=== PATIENT | female | born 1950 | race American Indian/Alaskan Native ===

== ENCOUNTER 2017-03-10 18:36 | Emergency (ER) | payer MEDICARE ==
[2017-03-10 21:30] LABS: BASO % 0.6 % (0.0-2.0); EOS # 0.1 K/uL (0.0-0.7); EOS % 1.7 % (0.0-4.0); HEMOGLOBIN 14.1 g/dL (11.0-16.0); LYMPH # 2.7 K/uL (1.0-4.3); LYMPH % 34.2 % (20.0-40.0); MEAN CELL VOLUME 87.7 fL (81.0-99.0); MEAN CORPUSCULAR HEMOGLOBIN 29.9 pg (27.0-31.0); MEAN CORPUSCULAR HGB CONC 34.1 g/dL (33.0-37.0); MEAN PLATELET VOLUME 7.4 fL (7.2-11.7); MONO # 0.5 K/uL (0.0-0.8); MONO % 6.3 % (0.0-10.0); NEUT # 4.4 K/uL (1.8-7.0); NEUT % 57.2 % (50.0-75.0); NRBC % 0.2 % (0.0-2.0); RBC 4.7 Mil/uL (3.80-5.20); RED CELL DISTRIBUTION WIDTH 15.2 % (11.5-14.5); WHITE BLOOD COUNT 7.7 K/uL (4.8-10.8)
[2017-03-10 21:39] LABS: SQUAMOUS EPITHIAL 4 /hpf (0-5); URINE BACTERIA MOD (<OCC); URINE BILIRUBIN NEGATIVE (NEGATIVE); URINE BLOOD 1+ (NEGATIVE); URINE CLARITY Hazy (Clear); URINE COLOR Yellow (YELLOW); URINE GLUCOSE (UA) NORMAL (Normal); URINE LEUKOCYTE ESTERASE 3+ Leu/uL (Negative); URINE NITRATE POSITIVE (NEGATIVE); URINE PROTEIN NEGATIVE (NEGATIVE); URINE UROBILINOGEN NORMAL mg/dL (0.2-1.0); WBC CLUMPS FEW /hpf
[2017-03-10 21:44] LABS: ALBUMIN 4.3 g/dL (3.5-5.0); CALCIUM 9.2 mg/dl (8.6-10.4)
[2017-03-10 21:49] LABS: ALB/GLOB RATIO 1.1 (1.0-2.1)
[2017-03-10] MEDS ORDERED: Aluminum Hydroxide/Magnesium Hydroxide Susp (30 mL) PO STA (21:56)
[2017-03-10] MEDS ORDERED: Belladonna-Phenobarbital PO STA (21:56)
--- NOTE | 2017-03-10 22:03 | C.PDOC ---
History Of Present Illness 66 year old female presents to ED with complaints of vague abdominal pain x2 days and has no past medical history. (+) nausea and 1 episode of loose stool. ( -) vomiting. Describes the pain as "gaseous". Patient denies taking any medication and denies drug allergies. Notes past cholecystectomy in 2010. PCP: Non [facility] provider Time Seen by Provider: 03/10/17 20:58 Chief Complaint (Nursing): Abdominal Pain History Per: Patient History/Exam Limitations: no limitations Onset/Duration Of Symptoms: Days (x2) Current Symptoms Are (Timing): Still Present Quality Of Discomfort: Gas Associated Symptoms: Nausea, Diarrhea. denies: Vomiting Past Medical History Reviewed: Historical Data, Nursing Documentation, Vital Signs Vital Signs: Last Vital Signs Temp 97.7 F 03/11/17 01:43 Pulse 67 03/11/17 01:43 Resp 18 03/11/17 01:43 BP 103/66 03/11/17 01:43 Pulse Ox 96 03/11/17 01:43 - Medical History PMH: No Chronic Diseases Surgical History: Cholecystectomy, Tonsillectomy - [facility] IRRIGATION OF EAR (09/13/14) Family History: States: Unknown Family Hx - Social History Hx Tobacco Use: Yes (half pack per day for last 40 years) Hx Alcohol Use: No Hx Substance Use: No - Immunization History Hx Tetanus Toxoid Vaccination: No Hx Influenza Vaccination: No Hx Pneumococcal Vaccination: No Review Of Systems Except As Marked, All Systems Reviewed And Found Negative. Gastrointestinal: Positive for: Nausea, Abdominal Pain (vague, gaseous), Diarrhea. Negative for: Vomiting Physical Exam - Physical Exam Appears: Well Skin: Normal Color Eye(s): bilateral: Normal Inspection, PERRL, EOMI Throat: Normal Neck: Normal Cardiovascular: Rhythm Regular Respiratory: Normal Breath Sounds, No Wheezing Gastrointestinal/Abdominal: Normal Exam (Benign), Soft, No Tenderness, No Guarding, No Rebound Neurological/Psych: Oriented x3, Normal Motor, Normal Sensation ED Course And Treatment - Laboratory Results Result Diagrams: 03/10/17 21:27 03/10/17 21:27 ECG: Interpreted By Me, Viewed By Me ECG Rhythm: Sinus Rhythm Rate From EC O2 Sat by Pulse Oximetry: 98 (RA) Pulse Ox Interpretation: Normal Medical Decision Making Medical Decision Makin Initial orders: * Labs * Lipase * 1 tab PO * Maalox 30ml PO * Pepcid 20mg PO * UA * Re-eval 2314 Patient notes that she does not feel better. Will order blood work and CT scan. 0009 Labs reviewed: all unremarkable except for BUN level slightly elevated at 20. As per labs patient has a UTI. (+) blood, nitrate, leukocyte esterase, WBC, RBC, and bacteria in urine. Will order fluid and Rocephin 1gm 0020 CT FINDINGS: Lower thorax: Heart size is normal. There is dependent atelectasis at the lung bases ABDOMEN: Liver: There is fatty infiltration of the liver. Gallbladder and bile ducts: Gallbladder is surgically absent. There is prominence of the common duct. Pancreas: Pancreas is mildly atrophic. There is mild prominence pancreatic duct. Spleen: unremarkable Adrenals: There is bilateral adrenal thickening. Kidneys and ureters: Kidneys and ureters are unremarkable. Stomach and bowel: Stomach is almost empty. Rotation is normal. There is fluid and air throughout the small bowel. Terminal ileum is unremarkable. Appendix is not visualized.There is no pericecal inflammation.Colon is incompletely distended which limits evaluation. There is mild fatty infiltration of the left colon wall. Appendix: See stomach and bowel PELVIS: Bladder: unremarkable Reproductive: Uterus is atrophic. Contours are nodular. There are coarse calcifications in the uterus. There is a fluid collection in the central portions of the uterus. Adnexa are unremarkable. ABDOMEN and PELVIS: Intraperitoneal space: There is no significant fluid.There is no free air. Bones/joints: Bony structures are mildly osteopenic. Soft tissues: unremarkable Vasculature: There are vascular calcifications. Lymph nodes: There is no pathologic adenopathy. IMPRESSION: Prominent common duct status post cholecystectomy; mild pancreatic atrophy; fatty liver; no bowel obstruction 0055 Patient is stable for discharge. Scribe Attestation: Documented by Lisa Cruz acting as a scribe for Layla Santiago MD. Scribe Attestation: All medical record entries made by the Scribe were at my direction and personally dictated by me. I have reviewed the chart and agree that the record accurately reflects my personal performance of the history, physical exam, medical decision making, and the department course for this patient. I have also personally directed, reviewed, and agree with the discharge instructions and disposition. Disposition Counseled Patient/Family Regarding: Diagnosis, Need For Followup - Disposition Referrals: [facility] at [facility] [place] [Outside] [facility] at [facility] [Outside] [facility] at [place] [Outside] Disposition: HOME/ ROUTINE Disposition Time: 00:55 Condition: STABLE Additional Instructions: return if symptoms worsen Prescriptions: Cephalexin [Keflex] 250 mg PO QID 7 Days #28 capsule Forms: General Discharge Instructions, [facility] (Persian) - Clinical Impression Clinical Impression: UTI (urinary tract infection), Abdominal pain
[2017-03-10] MEDS ORDERED: Aluminum Hydroxide/Magnesium Hydroxide Susp (30 mL) ONE (22:50)
[2017-03-10] MEDS ORDERED: Belladonna-Phenobarbital ONE (22:50)
[2017-03-10] MEDS ORDERED: Sodium Chloride 0.9% 1,000 ML IV ONE (23:07)
[2017-03-10] MEDS ORDERED: Sodium Chloride 0.9% 1,000 ML ONE (23:45)
[2017-03-10 23:58] VITALS: RESP 18
[2017-03-11] MEDS ORDERED: Sodium Chloride 0.9% 1,000 ML IV ONE (00:09)
--- NOTE | 2017-03-11 00:20 | CT ---
EXAM: CT Abdomen and Pelvis With Intravenous Contrast EXAM DATE/TIME: 03/10/2017 11:07 PM CLINICAL HISTORY: 66 years old, female; Signs and symptoms; Nausea and vomiting; Additional info: Abd pain TECHNIQUE: Axial computed tomography images of the abdomen and pelvis with intravenous contrast. All CT scans at this facility use one or more dose reduction techniques, viz.: automated exposure control; ma/kV adjustment per patient size (including targeted exams where dose is matched to indication; i.e. head); or iterative reconstruction technique. Coronal and sagittal reformatted images were created and reviewed. CONTRAST: 100 mL of omni administered intravenously. COMPARISON: There are no prior studies for comparison. FINDINGS: Lower thorax: Heart size is normal. There is dependent atelectasis at the lung bases ABDOMEN: Liver: There is fatty infiltration of the liver. Gallbladder and bile ducts: Gallbladder is surgically absent. There is prominence of the common duct. Pancreas: Pancreas is mildly atrophic. There is mild prominence pancreatic duct. Spleen: unremarkable Adrenals: There is bilateral adrenal thickening. Kidneys and ureters: Kidneys and ureters are unremarkable. Stomach and bowel: Stomach is almost empty. Rotation is normal. There is fluid and air throughout the small bowel. Terminal ileum is unremarkable. Appendix is not visualized.There is no pericecal inflammation.Colon is incompletely distended which limits evaluation. There is mild fatty infiltration of the left colon wall. Appendix: See stomach and bowel PELVIS: Bladder: unremarkable Reproductive: Uterus is atrophic. Contours are nodular. There are coarse calcifications in the uterus. There is a fluid collection in the central portions of the uterus. Adnexa are unremarkable. ABDOMEN and PELVIS: Intraperitoneal space: There is no significant fluid.There is no free air. Bones/joints: Bony structures are mildly osteopenic. Soft tissues: unremarkable Vasculature: There are vascular calcifications. Lymph nodes: There is no pathologic adenopathy. IMPRESSION: Prominent common duct status post cholecystectomy; mild pancreatic atrophy; fatty liver; no bowel obstruction Additional nonemergent findings as described above.
[2017-03-11] MEDS ORDERED: Sodium Chloride 0.9% 1,000 ML ONE (00:48)
[2017-03-11 01:44] VITALS: BP 103/66; PULSE 67; TEMP 97.7
[2017-03-11 06:50] VITALS: O2SAT 98
--- NOTE | 2017-03-11 08:38 | RAD ---
Chest x-ray single frontal view History: Abdominal pain. Comparison: None available. Findings: Hyperinflation suggestive for COPD and or emphysematous changes. Bibasilar nipple shadows. Heart size within normal limits. Impression: Hyperinflation suggestive for COPD and or emphysematous changes.
--- NOTE | 2017-03-12 16:28 | CARD ---
APPROVED REPORT EKG Measurement Heart [id number] <Conclusion> Normal sinus rhythm Normal ECG
== END 2017-03-11 01:50 | disposition home or self-care (01) ==
LOC: C.ER 18:36
DX: N39.0 Urinary tract infection, site not specified (principal); R10.9 Unspecified abdominal pain
CPT/HCPCS: 71045; 74177; 80053; 81001; 83690; 85025; 87086; 93005; 96361; 96365; 96375; 99284; J0696; J2405; J7040